=== PATIENT | female | born 1955 | race Hispanic/Latino ===

== ENCOUNTER 2018-09-26 08:21 | Day surgery (SDC) | payer BC ==
[2018-09-26] MEDS ORDERED: SUBLIMAZE IV PRN (08:58)
[2018-09-26] MEDS ORDERED: DILAUDID IV PRN (08:58)
[2018-09-26] MEDS ORDERED: ZOFRAN IV PRN (08:58)
[2018-09-26] MEDS ORDERED: TRANSDERM-SCOP TD NR (09:00)
[2018-09-26] MEDS ORDERED: TYLENOL PO NR (09:00)
[2018-09-26] MEDS ORDERED: NACL 0.9% 1000 ML 1,000 ML IV SCH (09:00)
[2018-09-26] MEDS ORDERED: MORPHINE IV NR (09:00)
[2018-09-26] MEDS ORDERED: VERSED IV NR (09:00)
[2018-09-26] MEDS ORDERED: NEURONTIN PO NR (09:00)
--- NOTE | 2018-09-26 09:01 | Anesthesia Day of Surgery ---
Anesthesia Day of Surgery - Day of Surgery Patient Examined: Yes Patient H&P Reviewed: Yes Patient is NPO: Yes
--- NOTE | 2018-09-26 09:05 | Anesthesia Consultation ---
Anesthesia Consult and Med Hx Date of service: 09/26/18 - Airway Anesthetic Teeth Evaluation: Good ROM Head & Neck: Adequate Mental/Hyoid Distance: Adequate Mallampati Class: Class II Intubation Access Assessment: Probably Good - Pre-Operative Health Status ASA Pre-Surgery Classification: ASA3 Proposed Anesthetic Plan: General - Pulmonary Hx Smoking: Yes (07/25 PPD X 20 YRS. States she can climb stairs) COPD: Yes (PT STATES "I THINK I HAVE COPD"- NO MEDS) Hx Sleep Apnea: No (ANA PRE SCREEN HIGH RISK) - Cardiovascular System Hx Hypertension: Yes (X 3 YRS. Had stress test approx 3yrs ago and pts states it's ok) - Central Nervous System Hx Back Pain: Yes (FROM STONE) - Gastrointestinal Hx Gastroesophageal Reflux Disease: Yes (Hiatal hernia. Took her protonix last night) - Endocrine Hx Renal Disease: Yes (Stones. Slightly increased Cr) Hx Liver Disease: Yes (Increased LFTs. ?Fatty liver? Pt on Crestor and advised her to FU w PCP) - Other Systems Hx Cancer: No - Additional Comments Anesthesia Medical History Comments: PONV
[2018-09-26] MEDS ORDERED: XYLOCAINE MPF 2% ONE (09:43)
[2018-09-26] MEDS ORDERED: SUBLIMAZE ONE (09:44)
[2018-09-26] MEDS ORDERED: DIPRIVAN 10 MG/ML IV ONE (09:44)
[2018-09-26] MEDS ORDERED: ROBINUL ONE (10:24)
[2018-09-26] MEDS ORDERED: ANCEF/STERILE WATER 2 GM/20 ML IV NR (10:30)
--- NOTE | 2018-09-26 10:36 | Short Stay Summary ---
Short Stay Documentation Date of service: 09/26/18 - History H&P: obtained from office - Allergies and Medications Current Medications: Allergies No Known Allergies Allergy (Verified 09/25/18 11:38) Home Medications Medication Instructions Recorded Confirmed Last Taken Type Gemfibrozil [Lopid] 600 mg PO BID 09/25/18 09/25/18 09/25/18 History HYDROcodone/ACETAMINOPHEN 1 each PO PRN PRN 09/25/18 09/26/18 09/26/18 06:00 His tory [Hydrocodone-Acetamin 5-325 mg] Liraglutide [Victoza 2-Amrik] 0.6 mg SQ QDAY 09/25/18 09/25/18 09/25/18 History Lisinopril/Hydrochlorothiazide 1 each PO DAILY 09/25/18 09/25/18 09/25/18 H istory [Zestoretic 10-12.5 mg Tablet] Pantoprazole [Protonix TAB] 20 mg PO QDAY 09/25/18 09/25/18 09/25/18 History Rosuvastatin Calcium [Crestor] 20 mg PO DAILY 09/25/18 09/25/18 09/25/18 History metFORMIN [Glucophage] 500 mg PO BID 09/25/18 09/25/18 09/25/18 History Active Medications Acetaminophen (Tylenol) 650 mg PO PREOP NR Stop: 09/26/18 16:00 Last Admin: 09/26/18 09:32 Dose: 650 mg Documented by: Cefazolin Sodium (Ancef/Sterile Water 2 Gm/20 Ml) 2 gm IV PREOP NR Stop: 09/26/18 13:00 Celecoxib (Celebrex) 200 mg PO PREOP NR Stop: 09/26/18 16:00 Last Admin: 09/26/18 09:32 Dose: 200 mg Documented by: Fentanyl (Sublimaze) 50 mcg IV Q5MIN PRN PRN Reason: Pain , Severe (7-10) Stop: 09/26/18 20:00 Gabapentin (Neurontin) 300 mg PO PREOP NR Stop: 09/26/18 16:00 Last Admin: 09/26/18 09:32 Dose: 300 mg Documented by: Hydromorphone HCl (Dilaudid) 0.5 mg IV Q10MIN PRN PRN Reason: Pain , Severe (7-10) Stop: 09/26/18 20:00 Sodium Chloride (Nacl 0.9% 1000 Ml) 1,000 mls @ 100 mls/hr IV DIRECT SLOAN Last Admin: 09/26/18 09:30 Dose: 100 mls/hr Documented by: Midazolam HCl (Versed) 2 mg IV PREOP NR Stop: 09/26/18 23:59 Last Admin: 09/26/18 09:33 Dose: 2 mg Documented by: Morphine Sulfate (Morphine) 2 mg IV ONCE NR Stop: 09/26/18 16:00 Last Admin: 09/26/18 09:34 Dose: 2 mg Documented by: Ondansetron HCl (Zofran) 4 mg IV ONCE PRN PRN Reason: Nausea And Vomiting Stop: 09/26/18 16:00 Scopolamine (Transderm-Scop) 1 each TD PREOP NR Stop: 09/26/18 20:00 Last Admin: 09/26/18 09:30 Dose: 1 each Documented by: - Brief post op/procedure progress note Date of procedure: 09/26/18 Pre-op diagnosis: rt ureteral stone Post-op diagnosis: same Procedure: eswl Anesthesia: GETA Surgeon: LARA PORTILLO Estimated blood loss: minimal Condition: stable - Hospital course Hospital course: ultram, percocet, post op info on chart - Disposition Condition at discharge: Stable Disposition: [id number] TO HOME OR SELFCARE Short Stay Discharge Plan Follow up with: SUMI ROCHA MD [Primary Care Provider] - 7 Days
--- NOTE | 2018-09-26 11:10 | Operative Report ---
PREOPERATIVE DIAGNOSIS: Right ureter right proximal ureteral stone. POSTOPERATIVE DIAGNOSIS: Right distal ureteral stone, status post stent placement. PROCEDURE: Extracorporal shock wave lithotripsy. SURGEON: Ronn Sosa MD ANESTHESIA: General. ESTIMATED BLOOD LOSS: Minimal. FLUIDS: Crystalloid. COMPLICATIONS: No complications. INDICATIONS: This 63-year-old female was seen by Dr. Schneider in the office with recurrent kidney stones. She has a right stent and a 5 mm ureteral stone. Risks, benefits, and complications were explained. The patient agreed to proceed with surgical intervention. DESCRIPTION OF PROCEDURE: The patient was taken to the operative suite, placed in a supine position. After adequate general anesthesia, 5 mm stone was localized in the distal ureter using 2 planes. Extracorporal shock wave lithotripsy was administered with a maximum kV of 8 and 3000 shocks. Adequate fragmentation could be appreciated. The patient tolerated the procedure well. She was extubated and taken to recovery room in stable condition. She will go home on Ultram and Percocet. Follow up in the office. JOB# [id number] SAM/JEN
--- NOTE | 2018-09-26 14:01 | Post Anesthesia Evaluation ---
- Post Anesthesia Evaluation Patient Participated: Yes Airway Patent: Yes Stable Respiratory Function: Yes Nausea/Vomiting: No Temp > 96.8F: Yes Pain Manageable: Yes Adequeate Hydration: Yes Anesthesia Complications: No
[2018-09-26 14:12] VITALS: BP 158/82
== END 2018-09-26 08:22 | disposition home or self-care (01) ==
LOC: OR 08:21
PROVIDERS: ATTEND Urology
DX: N20.1 Calculus of ureter (principal); I10 Essential (primary) hypertension; J44.9 Chronic obstructive pulmonary disease, unspecified; K21.9 Gastro-esophageal reflux disease without esophagitis; F17.210 Nicotine dependence, cigarettes, uncomplicated; Z79.899 Other long term (current) drug therapy; Z90.49 Acquired absence of other specified parts of digestive tract; Z79.84 Long term (current) use of oral hypoglycemic drugs
CPT/HCPCS: 36415; 50590; 82962; 84132; J0690; J1170; J2250; J2270; J2704; J3010; J7030

== ENCOUNTER 2018-10-24 15:24 | Inpatient (IN) | payer BC ==
[2018-10-24] MEDS ORDERED: XYLOCAINE MPF 2% ONE (17:09)
[2018-10-24] MEDS ORDERED: ROBINUL ONE (17:09)
[2018-10-24] MEDS ORDERED: SUBLIMAZE ONE ×2 (17:09→18:59)
[2018-10-24] MEDS ORDERED: DIPRIVAN 10 MG/ML IV ONE (17:09)
[2018-10-24] MEDS ORDERED: ZOFRAN ONE (17:22)
[2018-10-24] MEDS ORDERED: TRANSDERM-SCOP TD ONE (17:28)
--- NOTE | 2018-10-24 17:58 | Anesthesia Consultation ---
Anesthesia Consult and Med Hx Date of service: 10/24/18 - Airway Anesthetic Teeth Evaluation: Good ROM Head & Neck: Adequate Mental/Hyoid Distance: Adequate Mallampati Class: Class II Intubation Access Assessment: Probably Good - Pulmonary Exam CTA: Yes - Cardiac Exam Cardiac Exam: RRR - Pre-Operative Health Status ASA Pre-Surgery Classification: ASA3 Proposed Anesthetic Plan: General - Pulmonary Hx Smoking: Yes (1/3 PPD X 20 YRS. States she can climb stairs) Hx Respiratory Symptoms: No COPD: Yes (PT STATES "I THINK I HAVE COPD"- NO MEDS) Home Oxygen Therapy: No Hx Sleep Apnea: No (ANA PRE SCREEN HIGH RISK) - Cardiovascular System Hx Hypertension: Yes (X 3 YRS. Had stress test approx 3yrs ago and pts states it's ok) Hx Coronary Artery Disease: No Hx Heart Attack/AMI: No - Central Nervous System Hx Back Pain: Yes (FROM STONE) - Gastrointestinal Hx Gastroesophageal Reflux Disease: Yes (Hiatal hernia. Took her protonix last night) - Endocrine Hx Renal Disease: Yes (Stones. Slightly increased Cr) Hx Liver Disease: Yes (Increased LFTs. ?Fatty liver? Pt on Crestor and advised her to FU w PCP) Hx Non-Insulin Dependent Diabetes: Yes Hx Thyroid Disease: No - Hematic Hx Anemia: No - Other Systems Hx Alcohol Use: No Hx Cancer: No Hx Obesity: Yes - Additional Comments Anesthesia Medical History Comments: No GAC, No FHAC
--- NOTE | 2018-10-24 17:59 | Anesthesia Day of Surgery ---
Anesthesia Day of Surgery - Day of Surgery Patient Examined: Yes Patient H&P Reviewed: Yes Patient is NPO: Yes Beta Blockers: No (n/a) Cardiac Clearance: No (n/a) Pulmonary Clearance: No (n/a)
[2018-10-24] MEDS ORDERED: ANCEF/STERILE WATER 2 GM/20 ML 2 GM/20 ML SYRINGE IV ONE (18:01)
--- NOTE | 2018-10-24 18:03 | Short Stay Summary ---
Short Stay Documentation Date of service: 10/24/18 - Allergies and Medications Current Medications: Allergies No Known Allergies Allergy (Verified 09/25/18 11:38) Home Medications Medication Instructions Recorded Confirmed Last Taken Type Gemfibrozil [Lopid] 600 mg PO BID 09/25/18 09/25/18 09/25/18 History HYDROcodone/ACETAMINOPHEN 1 each PO PRN PRN 09/25/18 09/26/18 09/26/18 06:00 History [Hydrocodone-Acetamin 5-325 mg] Liraglutide [Victoza 2-Amrik] 0.6 mg SQ QDAY 09/25/18 09/25/18 09/25/18 History Lisinopril/Hydrochlorothiazide 1 each PO DAILY 09/25/18 09/25/18 09/25/18 History [Zestoretic 10-12.5 mg Tablet] Pantoprazole [Protonix TAB] 20 mg PO QDAY 09/25/18 09/25/18 09/25/18 History Rosuvastatin Calcium [Crestor] 20 mg PO DAILY 09/25/18 09/25/18 09/25/18 History metFORMIN [Glucophage] 500 mg PO BID 09/25/18 09/25/18 09/25/18 History - Physical exam General appearance: no acute distress Lungs: Normal air movement Gastrointestinal: no distended Rectal Exam: deferred Extremities: no ischemia, No edema Short Stay Discharge Plan Follow up with: SUMI ROCHA MD [Primary Care Provider] - 7 Days
--- NOTE | 2018-10-24 18:07 | History and Physical Report ---
History of Present Illness Date of examination: 10/24/18 Chief complaint: flank pain History of present illness: h/o eswl and stent pull, called w/ intractable pain, stated could not come to office and stone not passed; but severe pain; o Medications and Allergies Allergies Allergy/AdvReac Type Severity Reaction Status Date / Time No Known Allergies Allergy Verified 09/25/18 11:38 Home Medications Medication Instructions Recorded Confirmed Last Taken Type Gemfibrozil [Lopid] 600 mg PO BID 09/25/18 09/25/18 09/25/18 History HYDROcodone/ACETAMINOPHEN 1 each PO PRN PRN 09/25/18 09/26/18 09/26/18 06:00 History [Hydrocodone-Acetamin 5-325 mg] Liraglutide [Victoza 2-Amrik] 0.6 mg SQ QDAY 09/25/18 09/25/18 09/25/18 History Lisinopril/Hydrochlorothiazide 1 each PO DAILY 09/25/18 09/25/18 09/25/18 History [Zestoretic 10-12.5 mg Tablet] Pantoprazole [Protonix TAB] 20 mg PO QDAY 09/25/18 09/25/18 09/25/18 History Rosuvastatin Calcium [Crestor] 20 mg PO DAILY 09/25/18 09/25/18 09/25/18 History metFORMIN [Glucophage] 500 mg PO BID 09/25/18 09/25/18 09/25/18 History Review of Systems Constitutional: fatigue Ears, nose, mouth and throat: no ear pain, no tinnitis Cardiovascular: other (reg rate) Respiratory: other (unlabored breathing), no cough, no shortness of breath, no dyspnea on exertion Psychiatric: no memory loss Endocrine: cold intolerance Exam - Constitutional General appearance: Present: no acute distress - EENT ENT: hearing intact - Neck Neck: Absent: masses or JVD - Extremities Extremities: no ischemia, No edema - Abdominal General gastrointestinal: Present: non-distended - Integumentary Integumentary: Present: clear - Psychiatric Psychiatric: appropriate mood/affect Assessment and Plan FLank pain/uret stone - declined eval office - disc options since intract pain and no stone passed disc on phone then hosp - disc opts expect management, eswl, admit / fluids; neph tube, stent plancemem urs - plan cysto, rpg, stent urs, laser, ;
[2018-10-24] MEDS ORDERED: LACTATED RINGERS 1,000 ML ONE (18:17)
[2018-10-24] MEDS ORDERED: VERSED ONE (18:22)
[2018-10-24] MEDS ORDERED: OMNIPAQUE (300 MG) IR ONE (19:03)
[2018-10-24] MEDS ORDERED: NEO SYNEPHRINE/NS Syringe(OR USE) IV ONE (19:11)
--- NOTE | 2018-10-24 19:37 | Post Operative Note ---
Date of procedure: 10/24/18 Pre-op diagnosis: right uret stone / hydro Post-op diagnosis: same (right PYONEPHROSIS / SEPSIS) Findings: right purulent drainage Procedure: cysto, brpg; right uret stent 6x28 Anesthesia: DANIS Surgeon: JUSTINO SOLARES Estimated blood loss: minimal Pathology: none Specimen disposition: to lab (right renal fluid for culture) Condition: stable Disposition: PACU
[2018-10-24] MEDS ORDERED: MORPHINE IV PRN (19:38)
[2018-10-24] MEDS ORDERED: LACTATED RINGERS 1,000 ML IV SCH (20:00)
[2018-10-24 20:19] LABS: Basophils # (Auto) 0.1 K/mm3 (0.0-0.1); Eosinophils # (Auto) 0.1 K/mm3 (0.0-0.4); Eosinophils % (Auto) 1.1 % (0.0-4.3); Hematocrit 31.4 % (30.3-42.9); Hemoglobin 10.6 gm/dl (10.1-14.3); Lymphocytes # (Auto) 0.9 K/mm3 (1.2-5.4); Lymphocytes % (Auto) 8.2 % (13.4-35.0); Mean Corpuscular HGB Conc 34 % (30-34); Mean Corpuscular Volume 95 fl (79-97); Monocytes # (Auto) 0.7 K/mm3 (0.0-0.8); Monocytes % (Auto) 6.8 % (0.0-7.3); Platelet Count 175 K/mm3 (140-440); Red Blood Count 3.33 M/mm3 (3.65-5.03); Red Cell Distribution Width 14.6 % (13.2-15.2)
[2018-10-24] MEDS ORDERED: TYLENOL PO PRN (20:22)
[2018-10-24] MEDS ORDERED: SODIUM CHLORIDE FLUSH SYRINGE 10 ML IV PRN ×2 (20:22→22:12)
[2018-10-24] MEDS ORDERED: ZOFRAN IV PRN ×2 (20:22→22:12)
[2018-10-24 20:32] LABS: Albumin 3.2 g/dL (3.9-5); Calcium 8.5 mg/dL (8.4-10.2)
[2018-10-24] MEDS ORDERED: D5/0.45NS 1,000 ML IV SCH (21:00)
[2018-10-24] MEDS ORDERED: SODIUM CHLORIDE FLUSH SYRINGE 10 ML IV SCH (22:00)
--- NOTE | 2018-10-24 22:14 | History and Physical Report ---
History of Present Illness Date of examination: 10/24/18 Date of admission: 10/24/18 20:32 History of present illness: 63-year-old history of hypertension, diabetes is being admitted from the PACU. Patient states she was diagnosed with a kidney stone since August, she had lithotripsy done, stent placement. She continued to have pain, distant was removed last week Sunday at 5 PM, she went to the emergency room that same night complaining of severe right flank pain, nausea vomiting. She was discharged on ciprofloxacin which she has been taking. She continues to have pain, urologist planned procedure today however it was aborted because she had purulent discharge coming out, and she had the right urethral stone with right hydronephrosis Review of systems Constitutional: no weight loss, chills, fever Ears, eyes, nose, mouth and throat: no nasal congestion, no nasal discharge, no sinus pressure, no vision change, no red eye. Neck: No neck pain or rigidity. Cardiovascular: no palpitations, chest pain Respiratory: no cough, shortness of breath Gastrointestinal: no hematochezia, abdominal pain Genitourinary : no frequency , no hematuria Musculoskeletal: no joint swelling or muscle ache Integumentary: no rash, no pruritis Neurological: no parathesias, no focal weakness Endocrine: no cold or heat intolerance, no polyuria or polydipsia Hematologic/Lymphatic: no easy bruising, no easy bleeding, no gland swelling Allergic/Immunologic: no urticaria, no angioedema. PAST MEDICAL HISTORY:hypertension, diabetes PAST SURGICAL HISTORY: None SOCIAL HISTORY: Denies alcohol, drugs, smokes one third pack a day FAMILY HISTORY: Hypertension Medications and Allergies Allergies Allergy/AdvReac Type Severity Reaction Status Date / Time levofloxacin [From Levaquin] AdvReac Swelling Verified 10/24/18 23:22 Home Medications Medication Instructions Recorded Confirmed Last Taken Type Gemfibrozil [Lopid] 600 mg PO BID 09/25/18 10/25/18 09/25/18 History HYDROcodone/ACETAMINOPHEN 1 each PO PRN PRN 09/25/18 10/25/18 09/26/18 06:00 History [Hydrocodone-Acetamin 5-325 mg] Liraglutide [Victoza 2-Amrik] 0.6 mg SQ QDAY 09/25/18 10/25/18 09/25/18 History Lisinopril/Hydrochlorothiazide 1 each PO DAILY 09/25/18 10/25/18 09/25/18 History [Zestoretic 10-12.5 mg Tablet] Pantoprazole [Protonix TAB] 20 mg PO QDAY 09/25/18 10/25/18 09/25/18 History Rosuvastatin Calcium [Crestor] 20 mg PO DAILY 09/25/18 10/25/18 09/25/18 History metFORMIN [Glucophage] 500 mg PO BID 09/25/18 10/25/18 09/25/18 History Aspirin [Lo-Dose Aspirin EC] 81 mg PO QDAY 10/25/18 10/25/18 Unknown History Ciprofloxacin HCl [Ciprofloxacin 500 mg PO BID 7 Days tablet 10/25/18 Unknown Rx TAB] Krill/[place]-3/Dha/Epa/Lipids 1 dose PO QDAY 10/25/18 10/25/18 Unknown History [Krill Oil 350 mg Softgel] Active Meds: Active Medications Acetaminophen (Tylenol) 650 mg PO Q4H PRN PRN Reason: Pain MILD(1-3)/Fever >100.5/WILCOX Famotidine (Pepcid) 20 mg IV BID SLOAN Lactated Ringer's (Lactated Ringers) 1,000 mls @ 125 mls/hr IV DIRECT SLOAN Morphine Sulfate (Morphine) 2 mg IV Q3H PRN PRN Reason: Pain, Moderate (4-6) Ondansetron HCl (Zofran) 4 mg IV Q8H PRN PRN Reason: Nausea And Vomiting Sodium Chloride (Sodium Chloride Flush Syringe 10 Ml) 10 ml IV BID SLOAN Sodium Chloride (Sodium Chloride Flush Syringe 10 Ml) 10 ml IV PRN PRN PRN Reason: LINE FLUSH Exam - Physical Exam Narrative exam: General Apperance: The patient lying in bed, breathing comfortable HEENT: Normocephalic, atraumatic. Pupils equally round and reactive to light, EOMI, no sclericterus or JVD or thyromegaly or nodule. , no carotid bruit, mucous membranes moist, no exudate or erythema Heart: S1-S2, regular is rhythm Lungs: Clear to auscultation bilaterally, breathing comfortable Abdomen: Positive bowel sounds, soft, nontender, nondistended, no organomegaly Extremities: No edema cyanosis clubbing Skin: no rash, nodule, warm and dry Neuro: cranial nerves 2-12 intact, speech is fluent, motor/sensory intact - Constitutional Vitals: Temp Pulse Resp BP Pulse Ox 99.0 F 91 H 16 120/64 93 10/24/18 21:09 10/24/18 21:09 10/24/18 21:09 10/24/18 21:09 10/24/18 21:09 Results - Labs CBC & Chem 7: 10/25/18 04:48 10/25/18 13:54 Labs: Abnormal lab results 10/24/18 10/24/18 10/24/18 Range/Units 20:04 20:04 20:55 RBC 3.33 L (3.65-5.03) M/mm3 Lymph % (Auto) 8.2 L (13.4-35.0) % Lymph # 0.9 L (1.2-5.4) K/mm3 Seg Neutrophils % 82.9 H (40.0-70.0) % Seg Neutrophils # 8.9 H (1.8-7.7) K/mm3 Sodium 131 L (137-145) mmol/L Chloride 95.8 L (98-107) mmol/L Creatinine 1.5 H (0.7-1.2) mg/dL Glucose 170 H (65-100) mg/dL POC Glucose 188 H (70-105) AST 61 H (5-40) units/L ALT 76 H (7-56) units/L Albumin 3.2 L (3.9-5) g/dL 10/24/18 Range/Units 21:12 RBC (3.65-5.03) M/mm3 Lymph % (Auto) (13.4-35.0) % Lymph # (1.2-5.4) K/mm3 Seg Neutrophils % (40.0-70.0) % Seg Neutrophils # (1.8-7.7) K/mm3 Sodium (137-145) mmol/L Chloride (98-107) mmol/L Creatinine (0.7-1.2) mg/dL Glucose (65-100) mg/dL POC Glucose 211 H (70-105) AST (5-40) units/L ALT (7-56) units/L Albumin (3.9-5) g/dL Assessment and Plan Assessment Right urethral stone with hydronephrosis Pyelonephritis Hypertension Hyponatremia Diabetes kidney disease, ? chronic Plan Admit to medicine Start IV Zosyn, fluids, follow cultures Urology swelling the patient, her IV morphine Check fingersticks and initiate insulin sliding scale Continue appropriate outpatient medications DVT prophylaxis
[2018-10-24] MEDS: PEPCID IV SCH (22:52)
[2018-10-24] MEDS ORDERED: D50W (25GM) Syringe IV PRN (22:55)
[2018-10-24] MEDS ORDERED: NACL 0.45% 1000 ML 1,000 ML IV SCH (23:00)
[2018-10-24] MEDS: ZOSYN/NS 4.5GM/100ML 4.5 GM/100 ML VIAL IV SCH (23:21)
[2018-10-25] MEDS ORDERED: DILAUDID IV PRN (02:46)
[2018-10-25 05:32] LABS: Basophils # (Auto) 0.1 K/mm3 (0.0-0.1); Basophils % (Auto) 0.7 % (0.0-1.8); Hematocrit 32.2 % (30.3-42.9); Hemoglobin 10.9 gm/dl (10.1-14.3); Lymphocytes # (Auto) 0.7 K/mm3 (1.2-5.4); Lymphocytes % (Auto) 7.6 % (13.4-35.0); Mean Corpuscular HGB Conc 34 % (30-34); Mean Corpuscular Volume 94 fl (79-97); Monocytes # (Auto) 0.3 K/mm3 (0.0-0.8); Monocytes % (Auto) 3.4 % (0.0-7.3); Platelet Count 178 K/mm3 (140-440); Red Blood Count 3.44 M/mm3 (3.65-5.03); Red Cell Distribution Width 14.5 % (13.2-15.2)
[2018-10-25] MEDS: ZOSYN/NS 4.5GM/100ML 4.5 GM/100 ML VIAL IV SCH (05:46)
[2018-10-25 05:52] LABS: Albumin 3.3 g/dL (3.9-5); Calcium 8.7 mg/dL (8.4-10.2)
--- NOTE | 2018-10-25 06:43 | Progress Note ---
Subjective Date of service: 10/25/18 Interval history: S/P rt stent for stone feels better nixon clear ultram & [id number] on chart abx of choice ok for home from standpoint Objective - Constitutional Vitals: Vital Signs - 12hr 10/24/18 10/24/18 10/24/18 19:38 19:43 19:48 Temperature 98.9 F Pulse Rate 102 H 100 H 98 H Pulse Rate [ Apical] Respiratory 20 22 22 Rate Respiratory Rate [Right Flank] Blood Pressure 104/51 104/54 110/53 O2 Sat by Pulse 100 98 95 Oximetry 10/24/18 10/24/18 10/24/18 19:53 20:08 20:38 Temperature 99.9 F H Pulse Rate 97 H 91 H 92 H Pulse Rate [ Apical] Respiratory 24 24 22 Rate Respiratory Rate [Right Flank] Blood Pressure 106/53 108/47 112/48 O2 Sat by Pulse 95 95 95 Oximetry 10/24/18 10/24/18 10/24/18 21:06 21:09 22:52 Temperature 99.0 F Pulse Rate 96 H 91 H Pulse Rate [ Apical] Respiratory 16 18 Rate Respiratory Rate [Right Flank] Blood Pressure 120/64 O2 Sat by Pulse 93 Oximetry 10/24/18 10/24/18 10/24/18 22:55 23:09 23:22 Temperature Pulse Rate Pulse Rate [ 91 H Apical] Respiratory 18 18 Rate Respiratory 18 Rate [Right Flank] Blood Pressure O2 Sat by Pulse 93 Oximetry 10/24/18 10/25/18 10/25/18 23:24 02:54 03:24 Temperature 98.3 F Pulse Rate 83 Pulse Rate [ Apical] Respiratory 15 18 18 Rate Respiratory Rate [Right Flank] Blood Pressure 115/47 O2 Sat by Pulse 91 Oximetry 10/25/18 04:20 Temperature 97.8 F Pulse Rate 65 Pulse Rate [ Apical] Respiratory 12 Rate Respiratory Rate [Right Flank] Blood Pressure 103/48 O2 Sat by Pulse 91 Oximetry - Labs CBC & Chem 7: 10/25/18 04:48 10/25/18 04:48 Labs: Abnormal lab results 10/24/18 10/24/18 10/24/18 Range/Units 20:04 20:04 20:55 RBC 3.33 L (3.65-5.03) M/mm3 Lymph % (Auto) 8.2 L (13.4-35.0) % Lymph # 0.9 L (1.2-5.4) K/mm3 Seg Neutrophils % 82.9 H (40.0-70.0) % Seg Neutrophils # 8.9 H (1.8-7.7) K/mm3 Sodium 131 L (137-145) mmol/L Potassium (3.6-5.0) mmol/L Chloride 95.8 L (98-107) mmol/L BUN (7-17) mg/dL Creatinine 1.5 H (0.7-1.2) mg/dL Glucose 170 H (65-100) mg/dL POC Glucose 188 H (70-105) AST 61 H (5-40) units/L ALT 76 H (7-56) units/L Albumin 3.2 L (3.9-5) g/dL 10/24/18 10/25/18 10/25/18 Range/Units 21:12 04:48 04:48 RBC 3.44 L (3.65-5.03) M/mm3 Lymph % (Auto) 7.6 L (13.4-35.0) % Lymph # 0.7 L (1.2-5.4) K/mm3 Seg Neutrophils % 88.3 H (40.0-70.0) % Seg Neutrophils # 8.2 H (1.8-7.7) K/mm3 Sodium 131 L (137-145) mmol/L Potassium 5.4 H D (3.6-5.0) mmol/L Chloride 96.8 L (98-107) mmol/L BUN 19 H (7-17) mg/dL Creatinine 1.4 H (0.7-1.2) mg/dL Glucose 477 H (65-100) mg/dL POC Glucose 211 H (70-105) AST 41 H (5-40) units/L ALT 63 H (7-56) units/L Albumin 3.3 L (3.9-5) g/dL Medications & Allergies - Medications Allergies/Adverse Reactions: Allergies levofloxacin [From Levaquin] Adverse Reaction (Verified 10/24/18 23:22) Swelling Home Medications: Home Medications Medication Instructions Recorded Confirmed Last Taken Type Gemfibrozil [Lopid] 600 mg PO BID 09/25/18 10/25/18 09/25/18 History HYDROcodone/ACETAMINOPHEN 1 each PO PRN PRN 09/25/18 10/25/18 09/26/18 06:00 History [Hydrocodone-Acetamin 5-325 mg] Liraglutide [Victoza 2-Amrik] 0.6 mg SQ QDAY 09/25/18 10/25/18 09/25/18 History Lisinopril/Hydrochlorothiazide 1 each PO DAILY 09/25/18 10/25/18 09/25/18 History [Zestoretic 10-12.5 mg Tablet] Pantoprazole [Protonix TAB] 20 mg PO QDAY 09/25/18 10/25/18 09/25/18 History Rosuvastatin Calcium [Crestor] 20 mg PO DAILY 09/25/18 10/25/18 09/25/18 History metFORMIN [Glucophage] 500 mg PO BID 09/25/18 10/25/18 09/25/18 History Aspirin [Lo-Dose Aspirin EC] 81 mg PO QDAY 10/25/18 10/25/18 Unknown History Krill/[place]-3/Dha/Epa/Lipids 1 dose PO QDAY 10/25/18 10/25/18 Unknown History [Krill Oil 350 mg Softgel] Active Medications: Generic Name Dose Route Start Last Admin Trade Name Freq PRN Reason Stop Dose Admin Acetaminophen 650 mg 10/24/18 20:22 Tylenol PO Q4H PRN Pain MILD(1-3)/Fever >100.5/WILCOX Dextrose 50 ml 10/24/18 22:55 D50w (25gm) Syringe IV PRN PRN Hypoglycemia Enoxaparin Sodium 40 mg 10/25/18 10:00 Lovenox SUB-Q QDAY SLOAN Famotidine 20 mg 10/24/18 22:00 10/24/18 22:52 Pepcid IV 20 mg BID SLOAN Administration Hydromorphone HCl 2 mg 10/25/18 02:46 10/25/18 02:54 Dilaudid IV 2 mg Q6H PRN Administration Pain , Severe (7-10) Sodium Chloride 1,000 mls @ 100 mls/hr 10/24/18 23:00 10/24/18 23:20 Nacl 0.45% 1000 Ml IV 100 mls/hr DIRECT SLOAN Administration Piperacillin Sod/Tazobactam Sod 4.5 gm in 100 mls @ 200 mls/hr 10/24/18 23:00 10/25/18 05:46 Zosyn/Ns 4.5gm/100ml IV 200 mls/hr Q8HR SLOAN Administration Protocol Insulin Human Lispro 0 unit 10/25/18 07:30 Humalog SUB-Q ACHS SLOAN Protocol Ondansetron HCl 4 mg 10/24/18 22:12 Zofran IV Q4H PRN Nausea And Vomiting Sodium Chloride 10 ml 10/24/18 22:00 10/24/18 22:53 Sodium Chloride Flush Syringe 10 Ml IV 10 ml BID SLOAN Administration Sodium Chloride 10 ml 10/24/18 20:22 Sodium Chloride Flush Syringe 10 Ml IV PRN PRN LINE FLUSH
[2018-10-25] MEDS ORDERED: HumaLOG SUB-Q SCH (07:30)
--- NOTE | 2018-10-25 07:30 | Fluoroscopy Report ---
FLUORO RETROGRADE UROGRAPHY INDICATION: Right kidney stone. COMPARISON: None similar at this institution. IMAGES/CINE CLIPS: 10 FINDINGS: Fluoroscopy provided by radiology during procedure performed by the urologist. Initial compensation supervisor radiograph demonstrates mild multilevel spinal degenerative changes, greatest lower lumbar. Numerous pelvic phleboliths. Subsequent bilateral retrograde pyelograms appear unremarkable on the left as also the opacified right distal ureter. Proximal to mid right ureter not opacified. Subsequent images demonstrate right ureteral wire with subsequent satisfactory stent placement. Partially opacified right intrarenal collecting system not excluded mildly hydronephrotic. CONCLUSION: Intraoperative fluoroscopic assistance provided for cystogram, bilateral retrograde pyelograms and right ureteral stent placement, as described. Please also correlate with the procedural report by Dr. Schneider. Thank you for the opportunity to participate in this patient's care.
[2018-10-25] MEDS ORDERED: KIONEX PO NR (07:43)
[2018-10-25] MEDS ORDERED: LOPID PO SCH ×3 (08:00→10:00)
[2018-10-25 08:42] VITALS: BP 124/60
[2018-10-25] MEDS ORDERED: GLUCOPHAGE PO SCH (09:00)
[2018-10-25] MEDS: ZESTRIL PO SCH ×2 (09:02→09:12)
[2018-10-25] MEDS: PEPCID IV SCH (09:03)
[2018-10-25] MEDS ORDERED: LOVENOX SUB-Q SCH (10:00)
[2018-10-25] MEDS ORDERED: NON-FORMULARY (Rosuvastatin Calcium [Crestor] 20 MG) PO SCH (10:00)
[2018-10-25] MEDS ORDERED: HCTZ PO SCH (10:00)
[2018-10-25] MEDS ORDERED: PROTONIX PO SCH (10:00)
[2018-10-25] MEDS ORDERED: NON-FORMULARY (Lisinopril/Hydrochlorothiazide [Zestoretic 10-12.5 Mg Tablet] 1 EACH) PO SCH (10:00)
[2018-10-25] MEDS ORDERED: LIRAGLUTIDE 0.6 MG SQ SCH (10:00)
[2018-10-25] MEDS ORDERED: SODIUM CHLORIDE FLUSH SYRINGE 10 ML IV SCH (10:00)
--- NOTE | 2018-10-25 11:43 | Discharge Summary ---
Providers - Providers Date of Admission: 10/24/18 20:32 Attending physician: JORDON GUZMAN MD Primary care physician: SUMI ROCHA Hospitalization Reason for admission: uti Hospital course: 63-year-old history of hypertension, diabetes is being admitted from the PACU. Patient states she was diagnosed with a kidney stone since August, she had lithotripsy done, stent placement. She continued to have pain, distant was removed last week Sunday at 5 PM, she went to the emergency room that same night complaining of severe right flank pain, nausea vomiting. She was discharged on ciprofloxacin which she has been taking. She continues to have pain, urologist planned procedure today however it was aborted because she had purulent discharge coming out, and she had the right urethral stone with right hydronephrosis. Patient was admitted and treated with Emperic abx, did not develop any fever. She reports of a stent splint. Was started on empiric antibiotic with ciprofloxacin on discharge. The patient was seen by urology with the medication prescribed and recommended to follow up with him in the office. Her blood sugar improved slightly before discharge of the patient refused take insulin here in the hospital. She is in metformin and IV fluids. With also improvement in renal function. Right urethral stone with hydronephrosis Acute kidney injury on chronic kidney disease secondary to nephrolithiasis Pyelonephritis Hypertension Hyponatremia Diabetes Disposition: DC-[id number] TO HOME OR SELFCARE Time spent for discharge: 35 mins Core Measure Documentation - Palliative Care Palliative Care/ Comfort Measures: Not Applicable - Core Measures Any of the following diagnoses?: none Exam - Physical Exam Narrative exam: VITAL SIGNS: Reviewed. GENERAL: The patient appeared well nourished and normally developed, Vital signs as documented. HEAD: No signs of head trauma. EYES: Pupils are equal. Extraocular motions intact. EARS: Hearing grossly intact. MOUTH: Oropharynx is normal. NECK: No adenopathy, no JVD. CHEST: Chest with clear breath sounds bilaterally. No wheezes, rales, or rhonchi. CARDIAC: Regular rate and rhythm. S1 and S2, without murmurs, gallops, or rubs. VASCULAR: No Edema. Peripheral pulses normal and equal in all extremities. ABDOMEN: Soft, non tender and non distended. No rebound or guarding, and no masses palpated. Bowel Sounds normal. MUSCULOSKELETAL: Good range of motion of all major joints. Extremities without clubbing, cyanosis or edema. NEUROLOGIC EXAM: Alert and oriented x 3 No focal sensory or strength deficits. Speech normal. Follows commands. PSYCHIATRIC: Mood normal. SKIN: No rash or lesions. - Constitutional Vitals: Temp Pulse Resp BP Pulse Ox 97.7 F 71 18 124/60 96 10/25/18 08:40 10/25/18 08:40 10/25/18 08:40 10/25/18 08:40 10/25/18 08:40 Plan Activity: advance as tolerated, fall precautions Diet: low fat Special Instructions: record daily BP diary Follow up with: SUMI ROCHA MD [Primary Care Provider] - 7 Days JUSTINO SOLARES MD [Staff Physician] - 7 Days Prescriptions: Ciprofloxacin HCl [Ciprofloxacin TAB] 500 mg PO BID 7 Days tablet
--- NOTE | 2018-11-13 13:09 | Operative Report ---
Operative Report Operative Report: Dictated
--- NOTE | 2018-11-21 08:40 | Operative Report ---
PREOPERATIVE DIAGNOSES: Fever, right hydronephrosis. POSTOPERATIVE DIAGNOSES: Fever, right hydronephrosis, right pyonephrosis. PROCEDURES: Cystoscopy, bilateral RPGs, and right stent placement, 6-Nigerian. SURGEON: Eduardo Schneider MD ANESTHESIA: General. SPECIMENS: None. ESTIMATED BLOOD LOSS: Minimal. COMPLICATIONS: None. FINDINGS: Purulent right drainage. CLINICAL INDICATION: The patient has fever, right hydronephrosis. She was counseled, scheduled for this procedure urgently due to pain and then fever. Antibiotics, SCD. DESCRIPTION OF PROCEDURE: Transferred to OR suite in supine position, anesthesia, dorsal lithotomy, prepped and draped in standard fashion. A 22-Nigerian scope passed. Left retrograde pyelogram normal. Right side gentle retrograde in the ureter showed some dilation, filling defect, and likely stone migrated distally. At this point, Glidewire passed, purulent drainage, white. A 6-Nigerian double-J stent passed over the wire under direct and fluoroscopic visualization. When the wire and string were removed, nice proximal J, nice distal J within the bladder, bladder drained. The patient was awakened and transferred to PACU in good and stable condition. JOB# [id number] ATS/NTS
== END 2018-10-25 14:00 | disposition home or self-care (01) | DRG 660 ==
LOC: OR 15:24 → 4A 20:32
PROVIDERS: ADMIT Internal Medicine; ATTEND Internal Medicine
PROC: 0T768DZ Dilation of Right Ureter with Intraluminal Device, Via Natural or Artificial Opening Endoscopic (ICD-10-PCS; principal; 2018-10-24)
PROC: BT141ZZ Fluoroscopy of Kidneys, Ureters and Bladder using Low Osmolar Contrast (ICD-10-PCS; 2018-10-24)
DX: N13.6 Pyonephrosis (principal); E87.1 Hypo-osmolality and hyponatremia; N17.9 Acute kidney failure, unspecified; F17.200 Nicotine dependence, unspecified, uncomplicated; E66.9 Obesity, unspecified; J44.9 Chronic obstructive pulmonary disease, unspecified; E87.5 Hyperkalemia; N18.9 Chronic kidney disease, unspecified; I12.9 Hypertensive chronic kidney disease with stage 1 through stage 4 chronic kidney disease, or unspecified chronic kidney disease; E11.22 Type 2 diabetes mellitus with diabetic chronic kidney disease; K21.9 Gastro-esophageal reflux disease without esophagitis; Z68.37 Body mass index [BMI] 37.0-37.9, adult; Z87.442 Personal history of urinary calculi; Z82.49 Family history of ischemic heart disease and other diseases of the circulatory system; Z88.1 Allergy status to other antibiotic agents; Z79.899 Other long term (current) drug therapy; Z79.82 Long term (current) use of aspirin
CPT/HCPCS: 36415; 74420; 80048; 80053; 82962; 85025; 87076; 87086; 87116; 87186; 94760; 99406; G0378; C1726; C1758; C1769; C2617; J0690; J1170; J1815; J2250; J2270; J2370; J2405; J2543; J2704; J3010; J7030; J7120; Q9967